=== PATIENT | male | born 1995 | race Caucasian/White ===

== ENCOUNTER 2021-01-28 20:00 | Emergency (ER) | payer SELFPAY ==
--- NOTE | 2021-01-28 21:13 | EDM.PDOC ---
ED HPI GENERAL MEDICAL PROBLEM - General Chief Complaint: Skin Complaint Stated Complaint: LEFT LEG PAIN Time Seen by Provider: 01/28/21 20:21 Source of Information: Reports: Patient, RN Notes Reviewed History Limitations: Reports: No Limitations - History of Present Illness INITIAL COMMENTS - FREE TEXT/NARRATIVE: Patient is a 25-year-old male presenting to the emergency department with complaints of cellulitis to his left lower extremity. He reports that approximately a week and a half ago, he developed painful redness, swelling, and warmth to the area. He was seen in the clinic in [place] and started on Keflex for treatment of this. He finished his course of it on Thursday. States it had improved, however he did still have some redness to the area. The area has been gradually becoming more inflamed and now itchy. He reports that he feels his work boots are likely what is causing it. Does occasionally get wet inside his boots and then the boots rub on his legs. Denies any fever, chills, nausea, or vomiting. Left Leg Pain Score (Numeric/FACES): 0 - Related Data Allergies Allergy/AdvReac Type Severity Reaction Status Date / Time No Known Allergies Allergy Verified 01/28/21 20:12 Home Meds: Home Meds Amphetamine/Dextroamphetamine [Adderall XR] 37.5 mg PO DAILY 01/28/21 [History] Anastrozole [Arimidex] 5 mg PO ASDIRECTED 01/28/21 [History] ClomiPHENE [ClomiPHENE Citrate] 25 mg PO DAILY 01/28/21 [History] Past Medical History - Past Surgical History GI Surgical History: Reports: Appendectomy Social & Family History - Tobacco Use Tobacco Use Status *Q: Former Tobacco User Used Tobacco, but Quit: Yes Month/Year Tobacco Last Used: 05/2020 - Recreational Drug Use Recreational Drug Use: No ED ROS GENERAL - Review of Systems Review Of Systems: See Below Constitutional: Reports: No Symptoms. Denies: Fever, Chills HEENT: Reports: No Symptoms Respiratory: Reports: No Symptoms Cardiovascular: Reports: No Symptoms Endocrine: Reports: No Symptoms GI/Abdominal: Reports: No Symptoms : Reports: No Symptoms Musculoskeletal: Reports: No Symptoms Skin: Reports: Other (redness/warth/edema to left lower extremity) Neurological: Reports: No Symptoms ED EXAM, SKIN/RASH Exam: See Below Exam Limited By: No Limitations General Appearance: Alert, WD/WN, No Apparent Distress Respiratory/Chest: No Respiratory Distress, Lungs Clear, Normal Breath Sounds, No Accessory Muscle Use, Chest Non-Tender Cardiovascular: Normal Peripheral Pulses, Regular Rate, Rhythm, No Edema, No Gallop, No JVD, No Murmur, No Rub Extremities: Other (Redness, warmth, and scattered areas of purplish ecchymosis to the right lower extremity extending from the ankle to the mid calf. 1 cm weeping open area. Patient states this was from scratching.) Neurological: Alert, Oriented, CN II-XII Intact, Normal Cognition, Normal Gait, Normal Reflexes, No Motor/Sensory Deficits Psychiatric: Normal Affect Course - Vital Signs Last Recorded V/S: Last Vital Signs Temp 98.6 F 01/28/21 20:09 Pulse 106 H 01/28/21 20:09 Resp 16 01/28/21 20:09 BP 132/76 01/28/21 20:09 Pulse Ox 99 01/28/21 20:09 Departure - Departure Time of Disposition: 21:14 Disposition: Home, Self-Care 01 Condition: Good Clinical Impression: Cellulitis Qualifiers: Site of cellulitis: extremity Site of cellulitis of extremity: lower extremity Laterality: left Qualified Code(s): L03.116 - Cellulitis of left lower limb - Discharge Information *PRESCRIPTION DRUG MONITORING PROGRAM REVIEWED*: No *COPY OF PRESCRIPTION DRUG MONITORING REPORT IN PATIENT LYUBOV: No Instructions: Cellulitis, Adult Referrals: PCP,Not In Area [Primary Care Provider] - Forms: ED Department Discharge, ED Return to Work/School Form Additional Instructions: You were seen in the emergency department today for evaluation with regards to recurrence of cellulitis (skin infection) on your left lower leg. You have been started on doxycycline for treatment of this. Take this medication as prescribed. Recommend follow-up in the clinic towards the end of this week for reevaluation. If symptoms appear to be worsening or he develop fever, chills, nausea, or vomiting, recommend reevaluation at the nearest available facility. Sepsis Event Note (ED) - Evaluation Sepsis Screening Result: No Definite Risk
== END 2021-01-28 21:31 | disposition home or self-care (01) ==
LOC: JD.ED 20:00
DX: L03.116 Cellulitis of left lower limb (principal); R60.0 Localized edema; Z87.891 Personal history of nicotine dependence
CPT/HCPCS: 99283